=== PATIENT | male | born 1970 | race Caucasian/White ===

== ENCOUNTER 2016-04-23 10:11 | Emergency (ER) | payer OTHER ==
[2016-04-23 10:16] VITALS: TEMP 98.3; BMI 36.2
--- NOTE | 2016-04-23 10:41 | PDOC ---
History of Present Illness - General History Source: Patient, Old Records Exam Limitations: No Limitations - History of Present Illness Initial Comments: 04/23/16 10:43 The patient is a 47-year-old man, accompanied by his brother, with a significant past medical history of hypercholesterolemia, coronary artery disease s/p stent placement, vertigo, gastroesophageal reflux disease, constipation and kidney stones who presents to the emergency department via walk -in for further evaluation of generalized weakness for the past 3 days. He was in this ED on 02/14/2016 for vertigo. A head CT was performed and was negative. He reports experiencing a mild intermittent frontal headache a few weeks after his discharge with associated visual changes. He went to an bunch breaker and he was prescribed reading glasses. He reports his symptoms worsened on Saturday, as he felt generally weak with body aches, as minimal musculoskeletal movements are painful. He also notes experiencing generalized abdominal pain with associated diarrhea and urinary frequency. He denies dysuria, hematuria, urinary urgency, flank pain, testicular pain or penile discharge. He also states that he is always short of breath post CABG procedure, but notes that he is more short of breath than usual and attributes this to some recent weight gain. he is scheduled for an outpatient stress test in 3 days. No chest pain, lightheadedness, dizziness, palpitations, syncope. Allergies: No Known Drug Allergies. Past Surgical History: Bypass s/p Stent placement. CABG. Right knee surgery Social History: Former smoker (Cigars). Social ETOH use. No recreational drug use. Primary Care Physician: Dr. Kevon Alexander [phone] Paver Installer: Dr. Matlide Verma [phone] <Lisa Hernandez - Last Filed: 04/23/16 13:30> <Shmuel Bills - Last Filed: 04/23/16 14:28> - General Chief Complaint: Weakness Stated Complaint: DIZZINESS Time Seen by Provider: 04/23/16 10:29 Past History <Lisa Hernandez - Last Filed: 04/23/16 13:30> - Past Medical History Anemia: No Asthma: No Cancer: No Cardiac Disorders: Yes (CAD, CABG) CVA: No COPD: No CHF: No Dementia: No Diabetes: No GI Disorders: Yes (GERD/CONSTIPATION) Disorders: Yes (KIDNEY STONES) HTN: Yes (border line) Hypercholesterolemia: Yes Liver Disease: No Seizures: No Thyroid Disease: No - Surgical History Abdominal Surgery: No Appendectomy: No Cardiac Surgery: Yes (BYPASS 07/04/12, STENT X 1) Cholecystectomy: No Lung Surgery: No Neurologic Surgery: No Orthopedic Surgery: Yes (RT KNEE 1980) - Psycho/Social/Smoking Cessation Hx Anxiety: Yes Suicidal Ideation: No Smoking Status: No Smoking History: Former smoker Have you smoked in the past 12 months: No Number of Cigarettes Smoked Daily: 0 If you are a former smoker, when did you quit?: 2009 Information on smoking cessation initiated: No Hx Alcohol Use: No Drug/Substance Use Hx: No Substance Use Type: Alcohol Hx Substance Use Treatment: No <Shmuel Bills - Last Filed: 04/23/16 14:28> - Past Medical History Allergies/Adverse Reactions: Allergies Allergy/AdvReac Type Severity Reaction Status Date / Time No Known Drug Allergies Allergy Verified 04/23/16 10:12 Home Medications: Ambulatory Orders Rosuvastatin Calcium [Crestor] 10 mg PO DAILY #0 tablet 11/17/12 Aspirin [ASA -] 81 mg PO DAILY 12/11/12 Prasugrel Hydrochloride [Effient -] 10 mg PO DAILY 12/11/12 Ranolazine [Ranexa -] 500 mg PO BID #0 tab 12/13/12 Carvedilol [Coreg] 6.25 mg PO BID 02/27/13 Esomeprazole Mag Trihydrate [Nexium] 40 mg PO DAILY 02/27/13 Multivitamin [Multivitamins] 1 each PO DAILY 02/27/13 [place]-3 Acid Ethyl Esters [Lovaza -] 2,000 mg PO BID 08/31/13 Losartan Potassium 25 mg PO DAILY 04/07/15 Ranitidine [Zantac -] 150 mg PO HS 04/07/15 Cholecalciferol (Vitamin D3) [D3 Dots] 1,000 unit PO DAILY 02/14/16 Escitalopram Oxalate [Lexapro -] 20 mg PO DAILY 02/14/16 Fenofibric Acid [Trilipix -] 135 mg PO DAILY 02/14/16 Review of Systems - Review of Systems Constitutional: Yes: Chills. No: Fever HEENTM: Yes: Recent change in vision (ongoing for months) Respiratory: Yes: Shortness of Breath (chronic). No: Cough Cardiac (ROS): No: Chest Pain ABD/GI: Yes: Diarrhea, Nausea. No: Vomiting : Yes: Frequency. No: Dysuria Musculoskeletal: Yes: Muscle Pain Psychiatric: Yes: Depression (no SI) All Other Systems: Reviewed and Negative <Shmuel Bills - Last Filed: 04/23/16 14:28> *Physical Exam - Vital Signs Last Vital Signs Temp Pulse Resp BP Pulse Ox 98.3 F 110 H 18 152/92 100 04/23/16 10:13 04/23/16 10:13 04/23/16 10:13 04/23/16 10:13 04/23/16 10:13 - Physical Exam Comments: 04/23/16 10:50 GENERAL: The patient is awake, alert, and fully oriented, in no acute distress. HEAD: Normal with no signs of trauma. EYES: Pupils equal, round and reactive to light, extraocular movements intact, sclera anicteric, conjunctiva clear with no pallor. ENT: Ears normal, nares patent, oropharynx clear without exudates. Moist mucous membranes. NECK: Normal range of motion, supple without lymphadenopathy, JVD, or masses. LUNGS: Breath sounds equal, clear to auscultation bilaterally. No wheeze/ crackles. HEART: Regular rate and rhythm, normal S1 and S2 without murmur or rub. ABDOMEN: Soft. There is some lower abdominal discomfort to palpation over the left quadrant. Nondistended. BS wnl. No guarding or rebound. No palpable masses. No hepatosplenomegaly. EXTREMITIES: Normal range of motion, no edema. No clubbing or cyanosis. No cords, erythema, or tenderness. NEUROLOGICAL: Cranial nerves II through XII grossly intact. Normal speech. PSYCH: Normal mood, normal affect. SKIN: Warm, Dry, normal turgor, no rashes or lesions noted. <Lisa Hernandez - Last Filed: 04/23/16 13:30> - Vital Signs Last Vital Signs Temp Pulse Resp BP Pulse Ox 98.3 F 110 H 18 152/92 100 04/23/16 10:13 04/23/16 10:13 04/23/16 10:13 04/23/16 10:13 04/23/16 10:13 <Shmuel Bills - Last Filed: 04/23/16 14:28> Heart Score/ECG Review #1 ECG reviewed & interpreted by me at: 10:45 General ECG Interpretation: Sinus Rhythm, Normal Rate (108), Normal Intervals ( qtc 439), No acute ischemic changes (LPFB, TWI V1V2) Compared to previous ECG there are: No significant change (01/2016) <Shmuel Bills - Last Filed: 04/23/16 14:28> ED Treatment Course - LABORATORY CBC & Chemistry Diagram: 04/23/16 11:24 04/23/16 11:24 - RADIOLOGY Radiograph Interpretation: 04/23/16 12:45 EXAM: RAD/CHEST PA LAT IMPRESSION: Comparison: 08/31/2013. Frontal and lateral views of the chest reveal a normal sized heart with normal vascularity. The patient is status post open heart surgery. The lung dobbins are clear without evidence of mass or infiltrate. The costophrenic sulci are clear. The mediastinal, osseous and soft tissue structures as visualized are normal. <Lisa Hernandez - Last Filed: 04/23/16 13:30> - LABORATORY CBC & Chemistry Diagram: 04/23/16 11:24 04/23/16 11:24 <KareemjessiDeshaun jacobShmuel - Last Filed: 04/23/16 14:28> Medical Decision Making - Medical Decision Making 04/23/16 13:10 Paged Paver Installer: Dr. Matilde Verma. 04/23/16 13:[address] Jhonny Warren. Case was discussed. <Lisa Hernandez - Last Filed: 04/23/16 13:30> - Medical Decision Making 04/23/16 10:56 A portion of this note was documented by scribe services under my direction. I have reviewed the details of the note, within reason, and agree with the documentation with the following case summary and management plan written by me. 46-year-old male with multiple medical problems including hypertension, CAD status post CABG and stents, diabetes, depression presents with multiple complaints over the last 3 days of generalized weakness, diffuse body aches, nonbloody diarrhea, generalized fatigue, chronic shortness of breath. No actual chest pain, no cough, no fevers but positive chills. Admits to struggling with depression, denies any suicidal ideations. Vitals as noted. Generally well-appearing. Neurologically intact, cardiopulmonary exam is normal, slight left abdominal discomfort without peritoneal findings. 46-year-old male presents with several nonspecific complaints, atypical for ACS and is scheduled for a repeat routine stress test in 3 days. Rule out infectious etiology, rule out hyperglycemia/DKA, possibly exacerbation of depression without acute psych issues. Labs, urinalysis EKG, chest x-ray IV fluids Reassess 04/23/16 13:24 Labs are within normal limits, glucose normal, troponin negative. Chest x-ray normal. Unchanged, clinically stable. Will trial Toradol for muscle aches and headache, discuss dispo with Dr. Hayes. Discussed with patient again possibility of depression/stress, will discuss plan with Dr. Tellez. 04/23/16 14:23 D/W Dr. Warren. Pt feels better after toradol. Agrees with d/c plan and will f/u with his scheduled stress test on . Understands return criteria. <Shmuel Bills - Last Filed: 04/23/16 14:28> *DC/Admit/Observation/Transfer - Attestations Scribe Attestion: 04/23/16 10:50 Documentation prepared by Lisa Hernandez, acting as medical sales consultant for Shmuel Bills MD. <Lisa Hernandez - Last Filed: 04/23/16 13:30> <Shmuel Bills - Last Filed: 04/23/16 14:28> Diagnosis at time of Disposition: Generalized weakness - Discharge Dispostion Disposition: HOME Condition at time of disposition: Improved - Referrals Referrals: Kevon Dominguez MD [Primary Care Provider] - Matilde Verma MD [Staff Physician] - - Patient Instructions Printed Discharge Instructions: DI for Fatigue, DI for Depression -- Adult Additional Instructions: Activity as tolerated. Stay hydrated. Tylenol 1000 mg every 8 hours and/or ibuprofen 600 mg every 8 hours as needed for pain. Blood tests and a chest x-ray today showed no acute abnormalities. You recently had a normal CAT scan of the head in January, so if headaches persist consider an outpatient MRI for further evaluation. Continue your medications as previously prescribed by your physician. You should follow up with Dr. Tellez for your stress test, and your primary doctor as soon as possible regarding today's emergency department visit. Return to the emergency department for any new or concerning symptoms, particularly severe headache, severe weakness or fevers or chills, new chest pain or difficulty breathing.
[2016-04-23] MEDS ORDERED: SODIUM CHLORIDE 1,000 ML IV ONE (10:59)
[2016-04-23 11:45] LABS: BASOPHIL 0.2 % (0-2.0); MCH 30.3 pg (25.7-33.7); MCHC 33.5 g/dl (32.0-35.9); MEAN CELL VOLUME 90.3 fl (80-96); MEAN PLT VOLUME 8.1 fl (7.5-11.1); NEUTROPHILS 81.5 % (42.8-82.8); PLATELET COUNT 191 K/MM3 (134-434); RDW 13.1 % (11.9-15.9); WHITE BLOOD COUNT 10.1 K/mm3 (4.0-10.0)
[2016-04-23 12:18] LABS: INR 1.07 (0.82-1.09); PROTHROMBIN TIME (PATIENT) 11.8 SEC (9.98-11.88)
[2016-04-23 12:34] LABS: ANION GAP 9 (8-16); BILIRUBIN,TOTAL 0.7 mg/dL (0.2-1.0); CALCIUM 9.4 mg/dL (8.5-10.1); CO2 29 mmol/L (21-32); GLUCOSE,RANDOM 93 mg/dL (74-106); MAGNESIUM 1.8 mg/dL (1.8-2.4); SGOT/AST 58 U/L (15-37); SGPT/ALT 80 U/L (12-78); TOT PROT 8.3 g/dl (6.4-8.2)
[2016-04-23 12:37] LABS: ALK PHOS 63 U/L (45-117); TROPONIN I < 0.02 ng/ml (0.00-0.05)
[2016-04-23] MEDS ORDERED: KETOROLAC TROMETHAMINE 30 MG/1 ML VIAL IVPUSH ONE (13:23)
[2016-04-23] MEDS ORDERED: KETOROLAC TROMETHAMINE 30 MG/1 ML VIAL ONE (13:27)
[2016-04-23 13:38] LABS: URINE APPEARANCE SLCLOUDY; URINE BILIRUBIN NEGATIVE (NEGATIVE); URINE BLOOD NEGATIVE (NEGATIVE); URINE COLOR YELLOW; URINE GLUCOSE (UA) NEGATIVE (NEGATIVE); URINE KETONE NEGATIVE (NEGATIVE); URINE LEUK ESTERASE NEGATIVE (NEGATIVE); URINE NITRITE NEGATIVE (NEGATIVE); URINE PROTEIN NEGATIVE (NEGATIVE); URINE UROBILINOGEN NEGATIVE E.U./dl (0.2-1.0)
[2016-04-23 14:42] VITALS: BP 148/82; PULSE 92
--- NOTE | 2016-04-24 15:24 | EKG ---
Test Reason : Blood Pressure : / mmHG Vent. Rate : 108 BPM Atrial Rate : 108 BPM P-R Int : 166 ms QRS Dur : 098 ms QT Int : 328 ms P-R-T Axes : 027 073 067 degrees QTc Int : 439 ms SINUS TACHYCARDIA POSSIBLE LEFT ATRIAL ENLARGEMENT BORDERLINE ECG WHEN COMPARED WITH ECG OF 14-FEB-2016 14:04, NO SIGNIFICANT CHANGE WAS FOUND Confirmed by CASSY PEREZ MD ([id number]) on 04/24/2016 3:23:44 PM Referred By: Confirmed By:CASSY PEREZ MD
== END 2016-04-23 14:42 | disposition home or self-care (01) ==
LOC: JER 10:11
PROC: 3E0337Z Introduction of Electrolytic and Water Balance Substance into Peripheral Vein, Percutaneous Approach (ICD-10-PCS; principal; 2016-04-23)
PROC: 3E033TZ Introduction of Destructive Agent into Peripheral Vein, Percutaneous Approach (ICD-10-PCS; 2016-04-23)
DX: R53.1 Weakness (principal); I25.10 Atherosclerotic heart disease of native coronary artery without angina pectoris; I10 Essential (primary) hypertension; Z95.1 Presence of aortocoronary bypass graft; Z95.5 Presence of coronary angioplasty implant and graft; E78.00 Pure hypercholesterolemia, unspecified
CPT/HCPCS: 36415; 71020-TC; 80053; 81003; 82550; 83690; 83735; 84484; 85025; 85610; 93005; 93010; 99285-25

== ENCOUNTER 2017-05-06 15:12 | Emergency (ER) | payer OTHER ==
[2017-05-06] MEDS ORDERED: ONDANSETRON 4 MG/2 ML VIAL ONE ×2 (15:24→16:08)
[2017-05-06 15:28] VITALS: BP 103/79; PULSE 87; TEMP 98; BMI 41.8
[2017-05-06] MEDS ORDERED: FAMOTIDINE 20 MG/50 ML IVPB 20 MG/50 ML MG IVPB ONE ×2 (15:45→16:08)
[2017-05-06] MEDS ORDERED: SODIUM CHLORIDE 1,000 ML IV STA ×2 (15:45→18:51)
[2017-05-06] MEDS ORDERED: ONDANSETRON 4 MG/2 ML VIAL IVPB ONE (15:45)
--- NOTE | 2017-05-06 15:53 | PDOC ---
History of Present Illness - History of Present Illness Initial Comments: 05/06/17 15:49 47 M with h/o hypercholesterolemia, coronary artery disease s/p stent placement , vertigo, gastroesophageal reflux disease, constipation and kidney stones, presenting to ED with 1 day of N+V+D. Pt states that his symptoms began at around 1PM, beginning with 2 episodes of nonbloody emesis. Pt went home to rest and subsequently had 3 more episodes of vomiting as well as diarrhea. Pt denies F/C. Denies abdominal pain. Pt notes that he was prescribed cefdinir last week for a possible respiratory infection. After taking his first dose, he experienced similar symptoms. These symptoms resolved, and today pt took his second dose of cefdinir at 11am. <Dung Marquez - Last Filed: 05/06/17 18:51> <Unique Lucia - Last Filed: 05/06/17 21:50> - General Chief Complaint: Nausea/Vomiting Stated Complaint: NAUSEA/VOMITING Time Seen by Provider: 05/06/17 15:17 Past History - Past Medical History Anemia: No Asthma: No Cancer: No Cardiac Disorders: Yes (CAD, CABG) CVA: No COPD: No CHF: No Dementia: No Diabetes: No GI Disorders: Yes (GERD/CONSTIPATION) Disorders: Yes (KIDNEY STONES) HTN: Yes (border line) Hypercholesterolemia: Yes Liver Disease: No Seizures: No Thyroid Disease: No - Surgical History Abdominal Surgery: No Appendectomy: No Cardiac Surgery: Yes (BYPASS 07/04/12, STENT X 1) Cholecystectomy: No Lung Surgery: No Neurologic Surgery: No Orthopedic Surgery: Yes (RT KNEE 1980) - Suicide/Smoking/Psychosocial Hx Smoking Status: No Smoking History: Never smoked Have you smoked in the past 12 months: No Number of Cigarettes Smoked Daily: 0 If you are a former smoker, when did you quit?: 2009 Information on smoking cessation initiated: No Hx Alcohol Use: No Drug/Substance Use Hx: No Substance Use Type: Alcohol Hx Substance Use Treatment: No <Dung Marquez - Last Filed: 05/06/17 18:51> <Unique Lucia - Last Filed: 05/06/17 21:50> - Past Medical History Allergies/Adverse Reactions: Allergies Allergy/AdvReac Type Severity Reaction Status Date / Time No Known Drug Allergies Allergy Verified 05/06/17 15:28 Home Medications: Ambulatory Orders Rosuvastatin Calcium [Crestor] 10 mg PO DAILY #0 tablet 11/17/12 Aspirin [ASA -] 81 mg PO DAILY 12/11/12 Prasugrel Hydrochloride [Effient -] 10 mg PO DAILY 12/11/12 Ranolazine [Ranexa -] 500 mg PO BID #0 tab 12/13/12 Carvedilol [Coreg] 6.25 mg PO BID 02/27/13 Esomeprazole Mag Trihydrate [Nexium] 40 mg PO DAILY 02/27/13 Multivitamin [Multivitamins] 1 each PO DAILY 02/27/13 [place]-3 Acid Ethyl Esters [Lovaza -] 2,000 mg PO BID 08/31/13 Losartan Potassium 25 mg PO DAILY 04/07/15 Ranitidine [Zantac -] 150 mg PO HS 04/07/15 Cholecalciferol (Vitamin D3) [D3 Dots] 1,000 unit PO DAILY 02/14/16 Escitalopram Oxalate [Lexapro -] 20 mg PO DAILY 02/14/16 Fenofibric Acid [Trilipix -] 135 mg PO DAILY 02/14/16 Review of Systems - Review of Systems Comments:: 05/06/17 15:51 "GENERAL/CONSTITUTIONAL: No fever or chills. No weakness. HEAD, EYES, EARS, NOSE AND THROAT: No change in vision. No ear pain or discharge. No sore throat. CARDIOVASCULAR: No chest pain or shortness of breath. RESPIRATORY: No cough, wheezing, or hemoptysis. GASTROINTESTINAL: + nausea, vomiting, and diarrhea GENITOURINARY: No dysuria, frequency, or change in urination. MUSCULOSKELETAL: No joint or muscle swelling or pain. No neck or back pain. SKIN: No rash NEUROLOGIC: No headache, vertigo, loss of consciousness, or change in strength/ sensation. ENDOCRINE: No increased thirst. No abnormal weight change. HEMATOLOGIC/LYMPHATIC: No anemia, easy bleeding, or history of blood clots. ALLERGIC/IMMUNOLOGIC: No hives or skin allergy. " <Dung Marquez - Last Filed: 05/06/17 18:51> *Physical Exam - Vital Signs Last Vital Signs Temp Pulse Resp BP Pulse Ox 98.0 F 87 16 103/79 100 05/06/17 15:25 05/06/17 15:25 05/06/17 15:25 05/06/17 15:25 05/06/17 15:25 - Physical Exam Comments: 05/06/17 15:51 "GENERAL: Awake, alert, and fully oriented, in no acute distress HEAD: No signs of trauma EYES: PERRLA, EOMI, sclera anicteric, conjunctiva clear ENT: Auricles normal inspection, hearing grossly normal, nares patent, oropharynx clear without exudates. Moist mucosa NECK: Nontender, no stepoffs, Normal ROM, supple, no lymphadenopathy, JVD, or masses LUNGS: Breath sounds equal, clear to auscultation bilaterally. No wheezes, and no crackles HEART: Regular rate and rhythm, normal S1 and S2, no murmurs, rubs or gallops ABDOMEN: Soft, nontender, normoactive bowel sounds. No guarding, no rebound. No masses EXTREMITIES: Normal range of motion, no edema. No clubbing or cyanosis. No cords, erythema, or tenderness NEUROLOGICAL: Cranial nerves II through XII intact. 5/5 strength and sensation in all extremities, Normal speech, normal gait, normal cerebellar function SKIN: Warm, Dry, normal turgor, no rashes or lesions noted. " <Ou,Dung - Last Filed: 05/06/17 18:51> - Vital Signs Last Vital Signs Temp Pulse Resp BP Pulse Ox 98.0 F 87 16 103/79 100 05/06/17 15:25 05/06/17 15:25 05/06/17 15:25 05/06/17 15:25 05/06/17 15:25 <Unique Lucia - Last Filed: 05/06/17 21:50> ED Treatment Course - LABORATORY CBC & Chemistry Diagram: 05/06/17 16:15 05/06/17 16:15 - RADIOLOGY Radiology Studies Ordered: Category Date Time Status ABDOMEN [id number] [RAD] Stat Radiology 05/06/17 15:45 Ordered <Ou,Dung - Last Filed: 05/06/17 18:51> - LABORATORY CBC & Chemistry Diagram: 05/06/17 16:15 05/06/17 16:15 - ADDITIONAL ORDERS Additional order review: Laboratory Results 05/06/17 05/06/17 16:15 16:15 Sodium 137 Potassium 4.1 Chloride 107 Carbon Dioxide 18 L D Anion Gap 12 BUN 19 H Creatinine 1.3 D Creat Clearance w eGFR 58.67 Random Glucose 106 Calcium 9.1 Total Bilirubin 0.9 D AST 67 H ALT 94 H Alkaline Phosphatase 74 Creatine Kinase 78 Troponin I < 0.02 Total Protein 8.7 H Albumin 4.2 Lipase 104 05/06/17 16:15 RBC 5.53 MCV 91.3 MCHC 34.1 RDW 12.6 MPV 8.3 Neutrophils % No Result Required. Lymphocytes % No Result Required. - Medications Given in the ED: ED Medications Discontinued Medications Generic Name Dose Route Start Last Admin Trade Name Freq PRN Reason Stop Dose Admin Famotidine/Sodium Chloride 20 mg in 50 mls @ 100 mls/hr 05/06/17 15:45 16:40 Pepcid 20 Mg Premixed Ivpb - IVPB 05/06/17 16:14 100 mls/hr ONCE ONE Administration Sodium Chloride 1,000 mls @ 1,000 mls/hr 05/06/17 15:45 05/06/17 16:37 Normal Saline - IV 05/06/17 16:44 1,000 mls/hr ASDIR STA Administration Sodium Chloride 1,000 mls @ 1,000 mls/hr 05/06/17 18:51 05/06/17 19:30 Normal Saline - IV 05/06/17 19:50 1,000 mls/hr ASDIR STA Administration Ondansetron HCl 4 mg 05/06/17 15:45 05/06/17 16:25 Zofran Injection IVPB 05/06/17 15:46 4 mg ONCE ONE Administration <Unique Lucia - Last Filed: 05/06/17 21:50> Medical Decision Making - Medical Decision Making 05/06/17 15:51 47 M with N+V+D. Likely gastroenteritis vs antibiotic side effect. Pt with no abdominal tenderness to suggest acute abdominal pathology. Will r/o ACS with trop and EKG. - Labs, trop - EKG - IVF, GI cocktail 05/06/17 16:16 Pt continuing to have projectile vomiting. Abdomen is still nontender but slightly distended. Will obtain imaging to r/o obstructive process. 05/06/17 18:52 Labs notable for leukocytosis WBC 20, hemoconcentration. Pt signed out to oncoming attending, pending CT abdomen/pelvis and re- evaluation. <Dung Marquez - Last Filed: 05/06/17 18:51> - Medical Decision Making 05/06/17 21:48 Patient feels improved and is tolerating PO. CT is negative for acute pathology. Will discharge home. <Unique Lucia - Last Filed: 05/06/17 21:50> *DC/Admit/Observation/Transfer <Dung Marquez - Last Filed: 05/06/17 18:51> - Discharge Dispostion Admit: No <Unique Lucia - Last Filed: 05/06/17 21:50> Diagnosis at time of Disposition: Nausea and vomiting Qualifiers: Vomiting type: unspecified Vomiting Intractability: non-intractable Qualified Code(s): R11.2 - Nausea with vomiting, unspecified - Discharge Dispostion Disposition: HOME Condition at time of disposition: Good - Referrals Referrals: Kevon Dominguez MD [Primary Care Provider] - - Patient Instructions Printed Discharge Instructions: DI for Vomiting -- Adult Additional Instructions: Return to the ED for severe nausea and vomiting, unable to keep fluids down. REturn for persistent or worsening abdominal pain, or pain with fever. Follow up with your primary care doctor within three days. - Post Discharge Activity Forms/Work/School Notes: Back to Work
[2017-05-06 16:46] LABS: HEMATOCRIT 50.5 % (35.4-49); HEMOGLOBIN 17.2 GM/dL (11.7-16.9); MCH 31.1 pg (25.7-33.7); MCHC 34.1 g/dl (32.0-35.9); MEAN CELL VOLUME 91.3 fl (80-96); MEAN PLT VOLUME 8.3 fl (7.5-11.1); PLATELET COUNT 224 K/MM3 (134-434); RBC 5.53 M/mm3 (4.00-5.60); RDW 12.6 % (11.9-15.9); WHITE BLOOD COUNT 20.9 K/mm3 (4.0-10.0)
[2017-05-06 17:16] LABS: ALBUMIN 4.2 g/dl (3.4-5.0); ANION GAP 12 (8-16); BILIRUBIN,TOTAL 0.9 mg/dL (0.2-1.0); BLOOD UREA NITROGEN 19 mg/dL (7-18); CALCIUM 9.1 mg/dL (8.5-10.1); CHLORIDE 107 mmol/L (98-107); CO2 18 mmol/L (21-32); CREATININE 1.3 mg/dL (0.7-1.3); GLUCOSE,RANDOM 106 mg/dL (74-106); LIPASE 104 U/L (73-393); POTASSIUM 4.1 mmol/L (3.5-5.1); SGOT/AST 67 U/L (15-37); SGPT/ALT 94 U/L (12-78); SODIUM 137 mmol/L (136-145); TOT PROT 8.7 g/dl (6.4-8.2)
[2017-05-06 17:17] LABS: ALK PHOS 74 U/L (45-117)
[2017-05-06 18:21] LABS: PLATELET ESTIMATE ADEQUATE
--- NOTE | 2017-05-07 12:32 | EKG ---
Test Reason : Blood Pressure : / mmHG Vent. Rate : 088 BPM Atrial Rate : 088 BPM P-R Int : 160 ms QRS Dur : 110 ms QT Int : 382 ms P-R-T Axes : 022 077 043 degrees QTc Int : 462 ms NORMAL SINUS RHYTHM POSSIBLE LEFT ATRIAL ENLARGEMENT BORDERLINE ECG WHEN COMPARED WITH ECG OF 23-APR-2016 11:03, NO SIGNIFICANT CHANGE WAS FOUND Confirmed by MD JULIA, PENNY ([id number]) on 05/07/2017 12:31:32 PM Referred By: Confirmed By:PENNY DUMONT MD
== END 2017-05-06 22:25 | disposition home or self-care (01) ==
LOC: JER 15:12
PROC: 3E0337Z Introduction of Electrolytic and Water Balance Substance into Peripheral Vein, Percutaneous Approach (ICD-10-PCS; principal; 2017-05-06)
PROC: 3E033GC Introduction of Other Therapeutic Substance into Peripheral Vein, Percutaneous Approach (ICD-10-PCS; 2017-05-06)
PROC: 3E033GC Introduction of Other Therapeutic Substance into Peripheral Vein, Percutaneous Approach (ICD-10-PCS; 2017-05-06)
DX: K52.9 Noninfective gastroenteritis and colitis, unspecified (principal); I25.10 Atherosclerotic heart disease of native coronary artery without angina pectoris; I10 Essential (primary) hypertension; Z95.1 Presence of aortocoronary bypass graft; Z95.5 Presence of coronary angioplasty implant and graft; R42 Dizziness and giddiness; K21.9 Gastro-esophageal reflux disease without esophagitis; Z87.442 Personal history of urinary calculi
CPT/HCPCS: 36415; 74021-TC-FY; 74177-TC; 80053; 82550; 83690; 84484; 85025; 93005; 93010; 99282-25; J7030

== ENCOUNTER 2019-05-07 07:54 | Emergency (ER) | payer OTHER ==
[2019-05-07 08:06] VITALS: BMI 37.6
--- NOTE | 2019-05-07 09:11 | PDOC ---
Attending Attestation - Resident Resident Name: Pérez Davis - HPI HPI: 05/07/19 11:43 Pt presents to the ED complaining of cough and shortness of breath without fever. Denies history of travel or other risk factors for coronavirus. Longstanding history of shortness of breath which has been slowly worsening over the last 7 weeks. Presents today because his shortness of breath was worse over the last two days. Denies chest pain. extensive cardiac history as described in resident note. - Physicial Exam PE: 05/07/19 11:56 Agree with resident exam. Patient is well appearing in the Ed, speaking in complete sentences, and is in no acute distress. Lungs are clear. Abdomen is soft, non tender, non distended without guarding or rebound. ext: no edema - Medical Decision Making 05/07/19 11:57 Pt presents to the ED complaining of a 7 week history of progressively worsening SOB. Well appearing in the ED. Does not meet screening critieria for coronavirus. Differential included CHF, less likely ACS, other upper respiratory infection. Labs, are within normal limits, EKG is normal. Will discharge home with instructions to return to the ED for worsening symptoms and to royce Dr. Estrella for follow up.
--- NOTE | 2019-05-07 09:13 | PDOC ---
History of Present Illness - General Chief Complaint: Shortness of Breath Stated Complaint: SHORTNESS OF BREATH,BACK PAIN Time Seen by Provider: 05/07/19 09:02 - History of Present Illness Initial Comments: 05/07/19 09:15 49 yo M PMH HTN, HLD, CAD s/p stent placement and CABG (never had IN, had critical stenosis on angiogram that was performed due to family history of cardiac disease), ROGERIO not on treatment, GERD, kidney stones, presenting with SOB. Reports that he has had postnasal drip and resultant cough for the past two days, but also has generalized myalgias, fatigue, and subjective weakness. SOB with LÓPEZ. States that he had one episode of BRBPR yesterday night. has similar URI symptoms. Denies CP, abd pain, N/V, fevers/chills, [place], urinary changes, constipation/diarrhea. Past History - Past Medical History Allergies/Adverse Reactions: Allergies Allergy/AdvReac Type Severity Reaction Status Date / Time No Known Drug Allergies Allergy Verified 05/07/19 07:58 Home Medications: Ambulatory Orders Aspirin [ASA -] 81 mg PO DAILY 12/11/12 Carvedilol [Coreg] 6.25 mg PO BID 02/27/13 Losartan Potassium 25 mg PO DAILY 04/07/15 Cholecalciferol (Vitamin D3) [D3 Dots] 1,000 unit PO DAILY 02/14/16 Escitalopram Oxalate [Lexapro -] 20 mg PO DAILY 02/14/16 Rosuvastatin Calcium [Crestor] 20 mg PO DAILY 05/07/19 Anemia: No Asthma: No Cancer: No Cardiac Disorders: Yes (CAD, CABG) CVA: No COPD: No CHF: No Dementia: No Diabetes: No GI Disorders: Yes (GERD/CONSTIPATION) Disorders: Yes (KIDNEY STONES) HTN: Yes (border line) Hypercholesterolemia: Yes Liver Disease: No Seizures: No Thyroid Disease: No - Surgical History Abdominal Surgery: No Appendectomy: No Cardiac Surgery: Yes (BYPASS 07/04/12, STENT X 1) Cholecystectomy: No Lung Surgery: No Neurologic Surgery: No Orthopedic Surgery: Yes (RT KNEE 1979) - Psycho Social/Smoking Cessation Hx Smoking Status: No Smoking History: Never smoked Have you smoked in the past 12 months: No Number of Cigarettes Smoked Daily: 0 If you are a former smoker, when did you quit?: 2009 Information on smoking cessation initiated: No Hx Alcohol Use: No Drug/Substance Use Hx: No Substance Use Type: Alcohol Hx Substance Use Treatment: No Review of Systems - Review of Systems Comments:: 05/07/19 09:39 GENERAL/CONSTITUTIONAL: endorses generalized fatigue and weakness. Denies fever, chills, diaphoresis, malaise, loss of appetite, weight change HEAD, EYES, EARS, NOSE AND THROAT: denies rhinorrhea, nasal congestion, throat pain, throat swelling, difficulty swallowing, mouth swelling, ear pain, eye pain, visual changes NEUROLOGIC: denies headache, focal weakness or paresthesias, dizziness, unsteady gait, seizure, mental status changes, bladder or bowel incontinence CARDIOVASCULAR: denies chest pain, syncope, palpitations, irregular heart rate, lightheadedness, peripheral edema RESPIRATORY: endorses cough, shortness of breath, dyspnea with exertion. Denies orthopnea, wheezing, stridor, hemoptysis GASTROINTESTINAL: denies abdominal pain, abdominal distension, nausea, vomiting, diarrhea, constipation, melena, hematochezia GENITOURINARY: denies dysuria, frequency, urgency, hesitancy, hematuria, flank pain, genital pain MUSCULOSKELETAL: endorses myalgias. Denies arthralgia, joint swelling, back pain, neck pain SKIN: denies rash, itching, pallor HEMATOLOGIC/IMMUNOLOGIC: denies easy bleeding, easy bruising, lymphadenopathy, frequent infections ENDOCRINE: denies unexplained weight gain, unexplained weight loss, heat intolerance, cold intolerance PSYCHIATRIC: denies anxiety, depression, suicidal or homicidal ideation, hallucinations *Physical Exam - Vital Signs Last Vital Signs Temp Pulse Resp BP Pulse Ox 98 F 98 H 19 128/80 96 05/07/19 07:56 05/07/19 07:56 05/07/19 07:56 05/07/19 07:56 05/07/19 07:56 - Physical Exam 05/07/19 10:05 Gen: well-developed, well-nourished, NAD Neuro: AAOX4, CN II-XII intact, FTN intact, EOMI, PERRLA, 5/5 strength, SILT HEENT: atraumatic, normocephalic Neck: trachea midline, supple CV: regular rate, regular rhythm, no murmurs, rubs, or gallops Pulm: CTA b/l, no wheezing Abd: soft, non-distended, non-tender MSK: full ROM, intact pulses Extr: no edema, no deformities Skin: warm, dry ED Treatment Course - LABORATORY CBC & Chemistry Diagram: 05/07/19 09:50 05/07/19 09:50 Medical Decision Making - Medical Decision Making 05/07/19 09:38 Considering history of cardiac disease, r/o ACS. More likely viral syndrome, low concern for anemia. - CBC, CMP - EKG, trop - stool for occult - CXR portable 05/07/19 09:47 CXR without acute abnormality. EKG normal sinus at 87 bpm, NC 172, QRS 108, QTc 452. Labs unremarkable. Will dc for close outpatient follow-up. Discharge - Discharge Information Problems reviewed: Yes Clinical Impression/Diagnosis: Shortness of breath Condition: Improved Disposition: HOME - Admission No - Follow up/Referral Referrals: Kevon Dominguez MD [Primary Care Provider] - - Patient Discharge Instructions Patient Printed Discharge Instructions: DI for Shortness of Breath Additional Instructions: You were seen with shortness of breath. Your labs, EKG, and imaging were unremarkable. However, it is very important that you follow up with your primary care doctor and your real estate closing coordinator within one week. Return to the ED if you develop new or worsening symptoms. - Post Discharge Activity
[2019-05-07 10:03] LABS: BASO % 0.8 % (0-2.0); EOS % 3.1 % (0-4.5); HEMOGLOBIN 16.1 GM/dL (11.7-16.9); LYMPH % 32.9 % (8-40); MCH 31.2 pg (25.7-33.7); MCHC 34.2 g/dl (32.0-35.9); MEAN CELL VOLUME 91.4 fl (80-96); MEAN PLT VOLUME 7.8 fl (7.5-11.1); MONO % 8.5 % (3.8-10.2); NEUT % 54.7 % (42.8-82.8); PLATELET COUNT 199 K/MM3 (134-434); RBC 5.14 M/mm3 (4.00-5.60); RDW 12.7 % (11.9-15.9); WHITE BLOOD COUNT 8.5 K/mm3 (4.0-10.0)
[2019-05-07 10:43] LABS: ALBUMIN 3.9 g/dl (3.4-5.0); ALK PHOS 66 U/L (45-117); ANION GAP 7 MMOL/L (8-16); BLOOD UREA NITROGEN 14.5 mg/dL (7-18); CALCIUM 9.4 mg/dL (8.5-10.1); CHLORIDE 101 mmol/L (98-107); CO2 31 mmol/L (21-32); CREATININE 0.9 mg/dL (0.55-1.3); GLUCOSE,RANDOM 113 mg/dL (74-106); POTASSIUM 5.1 mmol/L (3.5-5.1); SGOT/AST 57 U/L (15-37); SGPT/ALT 72 U/L (13-61); SODIUM 138 mmol/L (136-145); TOT PROT 8.5 g/dl (6.4-8.2)
[2019-05-07 12:17] VITALS: BP 113/81; PULSE 95; TEMP 97.9
--- NOTE | 2019-05-07 15:05 | EKG ---
Test Reason : Blood Pressure : / mmHG Vent. Rate : 086 BPM Atrial Rate : 086 BPM P-R Int : 174 ms QRS Dur : 104 ms QT Int : 370 ms P-R-T Axes : 025 063 066 degrees QTc Int : 442 ms NORMAL SINUS RHYTHM RSR' OR QR PATTERN IN V1 SUGGESTS RIGHT VENTRICULAR CONDUCTION DELAY BORDERLINE ECG WHEN COMPARED WITH ECG OF 06-MAY-2017 16:29, RSR' PATTERN IN V1 IS NOW PRESENT Confirmed by FLORY PAREDES MD ([id number]) on 05/07/2019 3:05:23 PM Referred By: Confirmed By:FLORY PAREDES MD
== END 2019-05-07 12:20 | disposition home or self-care (01) ==
LOC: JER 07:54
DX: R06.02 Shortness of breath (principal); I25.810 Atherosclerosis of coronary artery bypass graft(s) without angina pectoris; I10 Essential (primary) hypertension; Z95.1 Presence of aortocoronary bypass graft; Z95.5 Presence of coronary angioplasty implant and graft; E78.5 Hyperlipidemia, unspecified; K21.9 Gastro-esophageal reflux disease without esophagitis; G47.33 Obstructive sleep apnea (adult) (pediatric); Z87.442 Personal history of urinary calculi
CPT/HCPCS: 36415; 71045-TC-FY; 80053; 82272; 82550; 84484; 85025; 93005; 93010; 99285-25